=== PATIENT | female | born 2000 ===

== ENCOUNTER 2020-09-22 19:59 | Emergency (ER) | payer SELFPAY ==
[~2020-09-22] VITALS: Ht 157.5 cm; Wt 72.7 kg
[2020-09-22 22:05] VITALS: BP 122/60
== END 2020-09-22 22:07 | disposition home or self-care (01) ==
LOC: ER 19:59
DX: T19.2XXA Foreign body in vulva and vagina, initial encounter (principal); X58.XXXA Exposure to other specified factors, initial encounter; Y93.89 Activity, other specified; Y92.89 Other specified places as the place of occurrence of the external cause; Y99.8 Other external cause status
CPT/HCPCS: 99284